=== PATIENT | male | born 1985 | race African-American/Black ===

== ENCOUNTER 2019-08-13 03:40 | Emergency (ER) | payer SELFPAY ==
[2019-08-13 04:32] LABS: Amphetamine Not Detected (NotDetected); Barbiturates Screen Not Detected (NotDetected); Benzodiazepine Screen Not Detected (NotDetected); Cocaine Metabolite Screen Not Detected (NotDetected); Medtox Control Line Valid? VALID (VALID); Medtox Reader # READER 1; Methadone Not Detected (NotDetected); Methamphetamine Not Detected (NotDetected); Opiate Screen Not Detected (NotDetected); Oxycodone Screen Not Detected (NotDetected); Phencyclidine (PCP) Not Detected (NotDetected); THC/Cannabinoid Screen Not Detected (NotDetected); Tricyclic Screen Not Detected (NotDetected)
[2019-08-13 04:49] LABS: #Basophils 0.1 thou/uL (0.0-0.2); #Eosinphils 0.2 thou/uL (0.0-0.7); #Lymphocytes 2.2 thou/uL (1.20-3.40); #Monocytes 0.6 thou/uL (0.11-0.59); #Neutrophils 5.5 thou/uL (1.40-6.50); %Basophils 0.9 % (0.0-1.0); %Eosinophils 2.9 % (0.0-10.0); %Lymphocytes 25.3 % (21.0-51.0); %Monocytes 7.2 % (0.0-10.0); %Neutrophils 63.7 % (42.0-75.0); Hemoglobin 13.6 g/dL (14.0-18.0); Mean Corpuscular HGB CONC 31.2 g/dL (32.0-36.0); Mean Corpuscular Hemoglobin 28.6 pg (27.0-31.0); Mean Corpuscular Volume 91.5 fL (78.0-98.0); Mean Platelet Volume 9.4 fL (7.4-10.4); Platelet Count 217 thou/uL (130-400); RBC Distribution Width 12.5 % (11.5-14.5); Red Blood Cell (RBC) Count 4.77 mill/uL (4.70-6.10); White Blood Cell (WBC) Count 8.6 thou/uL (4.8-10.8)
[2019-08-13 05:01] LABS: Acetaminophen Less than 6.0 mcg/mL (10.0-30.0); Alcohol Less than 10 mg/dL (Less than 10); Salicylate Less than 8.0 mg/dL (15.0-30.0)
[2019-08-13 05:02] LABS: ALT (SGPT) 29 U/L (8-55); AST (SGOT) 29 U/L (5-34); Albumin 3.9 g/dL (3.5-5.0); Alkaline Phosphatase 73 U/L (40-110); Anion Gap 11 mmol/L (10-20); BUN (Urea Nitrogen) 9 mg/dL (8.9-20.6); Bilirubin, Total 0.7 mg/dL (0.2-1.2); Calc. Creatinine Clearance 0 mL/min (70-130); Calcium 8.9 mg/dL (7.8-10.44); Carbon Dioxide 26 mmol/L (22-29); Chloride 107 mmol/L (98-107); Estimated GFR-MDRD Greater than 90; Globulin 2.5 g/dL (2.4-3.5); Glucose 84 mg/dL (70-105); Potassium 4.1 mmol/L (3.5-5.1); Protein, Total 6.4 g/dL (6.0-8.3); Sodium 140 mmol/L (136-145)
--- NOTE | 2019-08-13 07:47 | CT ---
PRELIMINARY REPORT/[facility]/EMERGENCY AFTER HOURS PROCEDURE EXAM: CT Head, Facial bones, and Cervical Spine Without IV contrast. CLINICAL HISTORY: Fall, hit head on sink COMPARISON: None provided. FINDINGS: BRAIN: No acute intracranial hemorrhage, mass-effect, or midline shift. No CT evidence of acute infarct in a large vascular territory. VENTRICLES No hydrocephalus. ORBITS Globes, extraocular muscles, and optic nerves appear intact. No retrobulbar hematoma. SINUSES AND MASTOIDS Minimal paranasal sinus mucosal thickening. Trace thickening/fluid in the mastoid air cells. SOFT TISSUES No prevertebral soft tissue swelling. BONES No depressed calvarial fracture. Acute minimally displaced right orbital floor fracture. Acute mildly depressed nasal bone fractures bilaterally. No acute fracture is seen in the cervical spine. Nonspecific straightening of the cervical lordosis, possibly positional or due to muscle spasm. Dental/periodontal disease in the right lateral incisor and left first premolar. Absent upper right lateral incisor. DISKS/DEGENERATIVE CHANGES Minimal multilevel spondylosis with loss of intervertebral disc space and osteophytic spurring. IMPRESSION: 1. Acute minimally displaced right orbital floor fracture. 2. Acute mildly depressed nasal bone fractures bilaterally. 3. No acute posttraumatic intracranial abnormality. 4. No acute fracture is seen in the cervical spine. ELECTRONICALLY SIGNED BY: Tej Lazaro MD August 13, 2019 5:45:19 AM CDT This report is intended for review by the ordering physician only, in accordance of law. If you recei ve this report in error, please call [facility] at [phone]. FINAL REPORT EMERGENT AFTER HOURS NONCONTRAST CT HEAD: HISTORY: Patient fell and hit head on sink. Injury. COMPARISON: None. IMPRESSION: 1. No acute intracranial abnormalities demonstrated. 2. Findings are in agreement with preliminary report by [facility]. Code QA Transcribed Date/Time: 08/13/2019 7:50 AM
--- NOTE | 2019-08-13 07:50 | CT ---
PRELIMINARY REPORT/[facility]/EMERGENCY AFTER HOURS PROCEDURE EXAM: CT Head, Facial bones, and Cervical Spine Without IV contrast. CLINICAL HISTORY: Fall, hit head on sink COMPARISON: None provided. FINDINGS: BRAIN: No acute intracranial hemorrhage, mass-effect, or midline shift. No CT evidence of acute infarct in a large vascular territory. VENTRICLES No hydrocephalus. ORBITS Globes, extraocular muscles, and optic nerves appear intact. No retrobulbar hematoma. SINUSES AND MASTOIDS Minimal paranasal sinus mucosal thickening. Trace thickening/fluid in the mastoid air cells. SOFT TISSUES No prevertebral soft tissue swelling. BONES No depressed calvarial fracture. Acute minimally displaced right orbital floor fracture. Acute mildly depressed nasal bone fractures bilaterally. No acute fracture is seen in the cervical spine. Nonspecific straightening of the cervical lordosis, possibly positional or due to muscle spasm. Dental/periodontal disease in the right lateral incisor and left first premolar. Absent upper right lateral incisor. DISKS/DEGENERATIVE CHANGES Minimal multilevel spondylosis with loss of intervertebral disc space and osteophytic spurring. IMPRESSION: 1. Acute minimally displaced right orbital floor fracture. 2. Acute mildly depressed nasal bone fractures bilaterally. 3. No acute posttraumatic intracranial abnormality. 4. No acute fracture is seen in the cervical spine. ELECTRONICALLY SIGNED BY: Tej Lazaro MD August 13, 2019 5:45:19 AM CDT This report is intended for review by the ordering physician only, in accordance of law. If you recei ve this report in error, please call [facility] at [phone]. FINAL REPORT Final report by Dr. Babcock Emergency after-hours study CT CERVICAL SPINE NONCONTRAST: DATE: 08/13/2019 HISTORY: cervical trauma FINDINGS: There are no jumped or perched facets. There is no evidence of acute fracture. The vertebral body hei ghts are maintained. There is no prevertebral soft tissue swelling. Agree with preliminary report by [facility]. IMPRESSION: No evidence of acute fracture or acute traumatic subluxation. Transcribed Date/Time: 08/13/2019 7:52 AM
--- NOTE | 2019-08-13 14:54 | CT ---
PRELIMINARY REPORT/[facility]/EMERGENCY AFTER HOURS PROCEDURE: EXAM: CT Head, Facial bones, and Cervical Spine Without IV contrast. CLINICAL HISTORY: Fall, hit head on sink COMPARISON: None provided. FINDINGS: BRAIN: No acute intracranial hemorrhage, mass-effect, or midline shift. No CT evidence of acute infar ct in a large vascular territory. VENTRICLES No hydrocephalus. ORBITS Globes, extraocular muscles, and optic nerves appear intact. No retrobulbar hematoma. SINUSES AND MASTOIDS Minimal paranasal sinus mucosal thickening. Trace thickening/fluid in the mast oid air cells. SOFT TISSUES No prevertebral soft tissue swelling. BONES No depressed calvarial fracture. Acute minimally displaced right orbital floor fracture. Acut e mildly depressed nasal bone fractures bilaterally. No acute fracture is seen in the cervical spine. Nonspecific straightening of the cervical lordosis, possibly positional or due to muscle spasm . Dental/periodontal disease in the right lateral incisor and left first premolar. Absent upper right lateral incisor. DISKS/DEGENERATIVE CHANGES Minimal multilevel spondylosis with loss of intervertebral disc space a nd osteophytic spurring. IMPRESSION: 1. Acute minimally displaced right orbital floor fracture. 2. Acute mildly depressed nasal bone fractures bilaterally. 3. No acute posttraumatic intracranial abnormality. 4. No acute fracture is seen in the cervical spine. ELECTRONICALLY SIGNED BY: eTj Lazaro MD August 13, 2019 5:45:19 AM CDT FINAL REPORT EMERGENCY AFTER HOURS NONCONTRAST CT SCAN FACIAL BONES: HISTORY: Agent fell and hit head on seen. Injury. COMPARISON: None. IMPRESSION: 1. Minimally displaced right orbital floor fracture, but the exact age of this fracture is indetermin ate. No mucosal thickening or fluid is present in the right maxillary antrum. 2. Mild deformity of the right medial orbital wall likely due to remote injury or developmental in et iology. No adjacent fluid is seen within the ethmoidal air cells. 3. Minimally displaced right nasal bone fracture with suggestion of mild asymmetric soft tissue edema compared to the left this likely represents a more recent fracture. 4. No retrobulbar hematoma or inflammatory stranding is seen. 5. Periapical lucency involving the right lateral incisor and left first premolar involving the letty ble suggesting periapical abscesses. 6. Findings are in agreement with preliminary report by [facility]. Transcribed Date/Time: 08/13/2019 3:14 PM
--- NOTE | 2019-08-15 15:42 | EKG ---
Test Reason : Blood Pressure : / mmHG Vent. Rate : 062 BPM Atrial Rate : 062 BPM P-R Int : 142 ms QRS Dur : 086 ms QT Int : 406 ms P-R-T Axes : 034 047 025 degrees QTc Int : 412 ms Normal sinus rhythm Early repolarization No STEMI Normal ECG Confirmed by RAPHAEL BENAVIDES M.D. ([id number]), photographic editor CHRISTINE MILLER ([id number]) on 08/15/2019 3:41:55 PM Referred By: Confirmed By:RAPHAEL BENAVIDES M.D.
== END 2019-08-13 06:58 ==
LOC: ERS 03:40
DX: S02.121A Fracture of orbital roof, right side, initial encounter for closed fracture (principal); S02.2XXA Fracture of nasal bones, initial encounter for closed fracture; W18.2XXA Fall in (into) shower or empty bathtub, initial encounter
CPT/HCPCS: 36415; 70450; 70486; 72125; 80053; 80306; 80307; 85025; 93005

== ENCOUNTER 2019-09-15 15:33 | Emergency (ER) | payer SELFPAY ==
[2019-09-15 16:02] LABS: #Eosinphils 0.1 thou/uL (0.0-0.7); #Lymphocytes 1.9 thou/uL (1.20-3.40); #Monocytes 0.5 thou/uL (0.11-0.59); %Basophils 0.7 % (0.0-1.0); %Eosinophils 1.5 % (0.0-10.0); %Lymphocytes 29.3 % (21.0-51.0); %Monocytes 7.9 % (0.0-10.0); %Neutrophils 60.6 % (42.0-75.0); Hemoglobin 12.6 g/dL (14.0-18.0); Mean Corpuscular HGB CONC 32.6 g/dL (32.0-36.0); Mean Corpuscular Hemoglobin 29.2 pg (27.0-31.0); Mean Corpuscular Volume 89.7 fL (78.0-98.0); Platelet Count 205 thou/uL (130-400); RBC Distribution Width 11.9 % (11.5-14.5); Red Blood Cell (RBC) Count 4.33 mill/uL (4.70-6.10); White Blood Cell (WBC) Count 6.6 thou/uL (4.8-10.8)
[2019-09-15 16:12] LABS: Acetaminophen Less than 6.0 mcg/mL (10.0-30.0); Alcohol Less than 10 mg/dL (Less than 10); CK (CPK) 108 U/L (30-200); Salicylate Less than 8.0 mg/dL (15.0-30.0)
[2019-09-15 16:13] LABS: ALT (SGPT) 8 U/L (8-55); AST (SGOT) 13 U/L (5-34); Albumin 4.2 g/dL (3.5-5.0); Alkaline Phosphatase 85 U/L (40-110); Anion Gap 13 mmol/L (10-20); BUN (Urea Nitrogen) 12 mg/dL (8.9-20.6); Bilirubin, Total 0.2 mg/dL (0.2-1.2); Calc. Creatinine Clearance 0 mL/min (70-130); Calcium 9.5 mg/dL (7.8-10.44); Carbon Dioxide 30 mmol/L (22-29); Chloride 106 mmol/L (98-107); Estimated GFR-MDRD Greater than 90; Globulin 2.6 g/dL (2.4-3.5); Glucose 75 mg/dL (70-105); Protein, Total 6.8 g/dL (6.0-8.3); Sodium 145 mmol/L (136-145)
--- NOTE | 2019-09-15 16:17 | CT ---
CT BRAIN 09/15/19 PROVIDED CLINICAL HISTORY: Altered mental status. FINDINGS: Comparison 08/13/19. The ventricular system appears normal in size and morphology. There is no evidence for intracranial h emorrhage or mass effect. The extracranial soft tissues and osseous structures demonstrate no acute a bnormality. IMPRESSION: No evidence for intracranial hemorrhage or mass effect. POS: JORDYN
[2019-09-15 17:42] LABS: Amphetamine Not Detected (NotDetected); Barbiturates Screen Not Detected (NotDetected); Benzodiazepine Screen Not Detected (NotDetected); Cocaine Metabolite Screen Not Detected (NotDetected); Medtox Control Line Valid? VALID (VALID); Medtox Reader # READER 4; Methadone Not Detected (NotDetected); Methamphetamine Not Detected (NotDetected); Opiate Screen Not Detected (NotDetected); Oxycodone Screen Not Detected (NotDetected); Phencyclidine (PCP) Not Detected (NotDetected); THC/Cannabinoid Screen Not Detected (NotDetected); Tricyclic Screen Not Detected (NotDetected)
[2019-09-15] MEDS ORDERED: Acetaminophen 500 MG TAB ONE (17:55)
[2019-09-15] MEDS ORDERED: Ketorolac Tromethamine 30 MG/ML VIAL ONE (17:55)
== END 2019-09-15 19:38 ==
LOC: ERS 15:33
DX: R41.82 Altered mental status, unspecified (principal)
CPT/HCPCS: 51701; 70450; 80053; 80306; 80307; 82550; 84443; 84484; 85025; 93005; 94760; 96374; J1885

== ENCOUNTER 2019-09-17 05:28 | Emergency (ER) | payer SELFPAY ==
[2019-09-17 07:34] LABS: #Basophils 0.1 thou/uL (0.0-0.2); #Eosinphils 0.1 thou/uL (0.0-0.7); #Lymphocytes 2.3 thou/uL (1.20-3.40); #Monocytes 0.5 thou/uL (0.11-0.59); #Neutrophils 4.1 thou/uL (1.40-6.50); %Eosinophils 1.6 % (0.0-10.0); %Monocytes 6.7 % (0.0-10.0); %Neutrophils 58.8 % (42.0-75.0); Hemoglobin 13.6 g/dL (14.0-18.0); Mean Corpuscular HGB CONC 32.6 g/dL (32.0-36.0); Mean Corpuscular Hemoglobin 29.3 pg (27.0-31.0); Mean Corpuscular Volume 89.9 fL (78.0-98.0); Platelet Count 197 thou/uL (130-400); RBC Distribution Width 11.7 % (11.5-14.5); Red Blood Cell (RBC) Count 4.64 mill/uL (4.70-6.10)
[2019-09-17 07:40] LABS: ALT (SGPT) 11 U/L (8-55); AST (SGOT) 11 U/L (5-34); Acetaminophen Less than 6.0 mcg/mL (10.0-30.0); Alcohol Less than 10 mg/dL (Less than 10); Alkaline Phosphatase 70 U/L (40-110); Anion Gap 11 mmol/L (10-20); BUN (Urea Nitrogen) 16 mg/dL (8.9-20.6); Bilirubin, Total 0.4 mg/dL (0.2-1.2); Calc. Creatinine Clearance 0 mL/min (70-130); Calcium 8.9 mg/dL (7.8-10.44); Carbon Dioxide 26 mmol/L (22-29); Chloride 111 mmol/L (98-107); Estimated GFR-MDRD 84; Globulin 2.4 g/dL (2.4-3.5); Glucose 87 mg/dL (70-105); Potassium 4.3 mmol/L (3.5-5.1); Protein, Total 6.4 g/dL (6.0-8.3); Salicylate Less than 8.0 mg/dL (15.0-30.0); Sodium 144 mmol/L (136-145)
--- NOTE | 2019-09-22 16:56 | EKG ---
Test Reason : Blood Pressure : / mmHG Vent. Rate : 053 BPM Atrial Rate : 053 BPM P-R Int : 146 ms QRS Dur : 084 ms QT Int : 404 ms P-R-T Axes : 035 047 039 degrees QTc Int : 379 ms Sinus bradycardia Otherwise normal ECG Confirmed by DIRK RICHTER M.D. ([id number]), supervising film or videotape editor HARDEEP HENDRIX ([id number]) on 09/22/2019 4:55:58 PM Referred By: Confirmed By:DIRK RICHTER M.D.
== END 2019-09-17 08:14 | disposition home or self-care (01) ==
LOC: ERS 05:28
DX: F12.10 Cannabis abuse, uncomplicated (principal); I10 Essential (primary) hypertension
CPT/HCPCS: 36415; 80053; 80307; 85025; 93005